=== PATIENT | female | born 1960 ===

== ENCOUNTER 2018-11-12 06:45 | Outpatient (CLI) | payer OTHER | END 2018-11-12 06:50 | disposition home or self-care (01) | LOC: LAB 06:45 | DX: E11.8 Type 2 diabetes mellitus with unspecified complications (principal); Z12.11 Encounter for screening for malignant neoplasm of colon ==

== ENCOUNTER → 2018-11-12 | Outpatient (CLI) | payer OTHER | END | disposition home or self-care (01) | LOC: NUCLEAR 10:58 | DX: M81.0 Age-related osteoporosis without current pathological fracture (principal) ==